=== PATIENT | male | born 1960 | race Hispanic/Latino ===

== ENCOUNTER 2017-07-03 20:07 | Inpatient (IN) | payer OTHER ==
[2017-07-03 20:18] VITALS: BMI 27.4
--- NOTE | 2017-07-03 20:40 | ED PDOC ---
Arrival/HPI - General Historian: Patient EM Caveat: Acuity of Condition - History of Present Illness Time/Duration: 24 hours Symptom Onset: Sudden Symptom Course: Improving Quality: Other (numbness/tingling) Severity Level: Moderate Activities at Onset: Eating Context: Home - General Chief Complaint: Upper Extremity Problem/Injury Time Seen by Provider: 07/03/17 20:30 - History of Present Illness Narrative History of Present Illness (Text): 07/03/17 20:32 57yo M PMH HTN and HLD who presents with L wrist/hand numbness and tingling that began earlier this morning around breakfast time. symptoms began suddenly and pt was not able to use his hands to grab objects; denies radiation of symptoms from/to shoulders. pt states that symptoms have improved but there remains some weakness in the hand. denies slurring of speech, facial droop, changes in vision/hearing, LOC, dizziness or any other focal deficits. Pt denies recent illness, sick contacts or any trauma. Pt states that he has not been taking his Lipitor for 2 years and has not seen his PMD during that time; pt was never started on anti-hypertensive meds. PMH: HTN and HLD PSH: L meniscus Meds: taking none Allergies: NKDA SHx: denies tobacco and substance abuse; social drinker. . 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 PMD: Dr Mcclendon ([facility]) Past Medical History - Provider Review Nursing Documentation Reviewed: Yes - Past History Past History: No Previous - Infectious Disease Hx of Infectious Diseases: None - Cardiac Hx Cardiac Disorders: Yes Hx Hyperlipemia: Yes Hx Hypertension: Yes - Pulmonary Hx Respiratory Disorders: No - Neurological Hx Neurological Disorder: No - HEENT Hx HEENT Disorder: No - Renal Hx Renal Disorder: No - Endocrine/Metabolic Hx Endocrine Disorders: No - Hematological/Oncological Hx Blood Disorders: No - Integumentary Hx Dermatological Disorder: No - Musculoskeletal/Rheumatological Hx Musculoskeletal Disorders: No - Gastrointestinal Hx Gastrointestinal Disorders: No - Genitourinary/Gynecological Hx Genitourinary Disorders: No - Psychiatric Hx Psychophysiologic Disorder: No Hx Substance Use: No - Past Surgical History Past Surgical History: Non-Contributing - Surgical History Other/Comment: L knee surgery - Anesthesia Hx Anesthesia: Yes Hx Anesthesia Reactions: No Hx Malignant Hyperthermia: No Family/Social History - Physician Review Nursing Documentation Reviewed: Yes Family/Social History: Hypertension Smoking Status: Never Smoked Hx Alcohol Use: Yes Frequency of alcohol use: Socially Hx Substance Use: No Allergies/Home Meds Allergies/Adverse Reactions: Allergies No Known Allergies Allergy (Verified 07/03/17 20:22) Home Medications: Home Meds Medication Instructions Recorded Confirmed No Known Home Med 07/04/17 07/04/17 Review of Systems - Physician Review All systems were reviewed & negative as marked: Yes - Review of Systems Constitutional: Normal. absent: Fevers, Night Sweats Eyes: absent: Vision Changes ENT: absent: Hearing Changes, Tinnitus Cardiovascular: absent: Chest Pain, Palpitations Gastrointestinal: absent: Abdominal Pain, Diarrhea, Nausea, Vomiting Genitourinary Male: Normal Musculoskeletal: absent: Back Pain, Neck Pain Neurological: Focal Weakness (L wrist numbness/tingling). absent: Headache, Dizziness, Speech Changes, Facial Droop Physical Exam Vital Signs Reviewed: Yes Appearance: Positive for: Well-Appearing Pain Distress: None Mental Status: Positive for: Alert and Oriented X 3 - Systems Exam Head: Present: Atraumatic, Normocephalic Pupils: Present: PERRL Extroacular Muscles: Present: EOMI Conjunctiva: Present: Normal Mouth: Present: Moist Mucous Membranes Pharnyx: Present: Normal Neck: Present: Normal Range of Motion. No: MIDLINE TENDERNESS, Paraspinal Tenderness, Lymphadenopathy Respiratory/Chest: Present: Clear to Auscultation, Good Air Exchange. No: Respiratory Distress, Accessory Muscle Use Cardiovascular: Present: Regular Rate and Rhythm, Normal S1, S2. No: Murmurs Abdomen: Present: Normal Bowel Sounds. No: Tenderness, Distention Back: Present: Normal Inspection. No: CVA Tenderness Upper Extremity: Present: NORMAL PULSES, Neurovascularly Intact. No: Tenderness , Swelling Lower Extremity: Present: Normal Inspection. No: Edema Neurological: Present: CN II-XII Intact, Speech Normal, Memory Normal. No: Motor Func Grossly Intact (L intrinsic muscle weakness ) Skin: Present: Warm, Dry, Normal Color. No: Rashes Psychiatric: Present: Alert, Oriented x 3 Vital Signs Temp Pulse Resp BP Pulse Ox 07/03/17 23:48 97.9 F 75 17 153/93 H 96 07/03/17 20:21 98.2 F 92 H 18 155/105 H 97 Medical Decision Making ED Course and Treatment: Patient seen and examined with resident. Came up with treatment and disposition plan with resident. ([place]) 07/03/17 20:48 Impression: 57yo M presenting with improving L wrist/hand weakness, numbness and tingling Differential Diagnosis included but are not limited to: CVA vs TIA vs peripheral neuropathy Plan: -- EKG -- Labs -- CT Head -- Reassess and disposition -- TPA not cosidered due to onset of symptoms being > 12 hours 07/03/17 21:13 EKG: Ordered, reviewed, and independently interpreted the EKG. Rate : 86 BPM Rhythm : NSR Interpretation : No ST-segment elevations or depressions, no T-wave inversions, normal intervals. Comparison : No previous EKG for comparison. 07/03/17 21:15 CT Head w/o contrast: IMPRESSION: Chronic changes. Acute infarcts/early ischemic changes may not be detectable by this modality; MRI is more sensitive in detecting acute ischemia. Dictated and Authenticated by: Allie Andersen MD 07/03/2017 11:19 PM Eastern Time ([place] & [place]) 07/04/17 00:50 Discussed with pt that he would be admitted for closer monitoring and neuro eval. 07/04/17 01:[address] Clay who accepts pt onto hospitalist service 07/04/17 01:04 CXR Impression: As read by me, no pneumothorax, no pneumonia, no cardiomegaly, no infiltrates (ARACELI VAZQUEZ) - Lab Interpretations Lab Results: 07/03/17 20:45 07/03/17 20:45 Lab Results 07/03/17 23:30: Urine Color Yellow, Urine Appearance Clear, Urine pH 6.0, Ur Specific [place] 1.015, Urine Protein Negative, Urine Glucose (UA) Negative, Urine Ketones Negative, Urine Blood Negative, Urine Nitrate Negative, Urine Bilirubin Negative, Urine Urobilinogen 0.2, Ur Leukocyte Esterase Negative 07/03/17 23:21: Blood Type Confirm B POSITIVE 07/03/17 20:45: Blood Type B POSITIVE, Antibody Screen Negative, BBK History Checked No verified bt 07/03/17 20:45: Sodium 141, Potassium 4.2, Chloride 103, Carbon Dioxide 25, Anion Gap 17, BUN 21, Creatinine 1.2, Est GFR ( Amer) > 60, Est GFR (Non- Af Amer) > 60, Random Glucose 133 H, Calcium 9.9, Total Bilirubin 0.7, AST 32, ALT 32, Alkaline Phosphatase 58, Troponin I < 0.01, Total Protein 8.0, Albumin 5.0 H, Globulin 3.0, Albumin/Globulin Ratio 1.7, Triglycerides 239 H, Cholesterol 271 H, LDL Cholesterol Direct 195 H, HDL Cholesterol 42 07/03/17 20:45: PT 10.9, INR 1.01, APTT 24.8 07/03/17 20:45: WBC 7.2, RBC 4.93, Hgb 15.0, Hct 42.5, MCV 86.2, MCH 30.4, MCHC 35.3, RDW 12.3, Plt Count 235, MPV 10.4, Gran % 63.1, Lymph % (Auto) 26.6, [place] % (Auto) 8.5 H, Eos % (Auto) 1.4 L, Baso % (Auto) 0.4, Gran # 4.53, Lymph # 1.9 , [place] # 0.6, Eos # 0.1, Baso # 0.03 - RAD Interpretation Radiology Orders: 07/03/17 20:31 CHEST PORTABLE [RAD] Stat 07/03/17 20:32 HEAD W/O CONTRAST [CT] Stat - Medication Orders Current Medication Orders: Discontinued Medications Aspirin (Aspirin) 325 mg PO STAT STA Stop: 07/03/17 23:47 Last Admin: 07/04/17 00:31 Dose: 325 mg Atorvastatin Calcium (Lipitor) 40 mg PO STAT STA Stop: 07/03/17 23:47 Last Admin: 07/04/17 00:31 Dose: 40 mg NIHSS Scale([place]) 2 Time Performed: 23:00 - How Severe is the Stoke Baseline Level of Consciousness: 0=Alert LOC to Questions: 0=Both comments correct LOC to commands: 0=Obeys both correctly Best Gaze: 0=Normal Visual: 0=No visual loss Facial: 0=Normal Motor Arm - Left: 0=No drift Motor Arm - Right: 0=No drift Motor Leg - Left: 0=No drift Motor Leg - Right: 0=No drift Limb Ataxia: 0=Absent Sensory: 0=Normal Best Language: 0=No aphasia Dysarthia: 0=Normal articulation Extinction & Inattention (Neglect): 0=Normal, no object Score: 0 Risk Level: No Stroke Risk Disposition/Present on Arrival - Present on Arrival Any Indicators Present on Arrival: No History of DVT/PE: No History of Uncontrolled Diabetes: No Urinary Catheter: No History of Decub. Ulcer: No History Surgical Site Infection Following: None - Disposition Have Diagnosis and Disposition been Completed?: Yes Disposition Time: 00:52 Patient Plan: Admission - Disposition Diagnosis: TIA (transient ischemic attack), Left arm weakness Disposition: HOSPITALIZED Patient Problems: Current Active Problems Problem Status Onset Left arm weakness Acute TIA (transient ischemic attack) Acute Condition: STABLE Referrals: Ivan Espinoza MD [Primary Care Provider] - Follow up with primary Forms: [employer] (Ugandan)
[2017-07-03 21:17] LABS: BASO # 0.03 K/mm3 (0.0-2.0); BASO % 0.4 % (0.0-3.0); EOS # 0.1 (0.0-0.7); EOS % 1.4 % (1.5-5.0); GRAN # 4.53 (1.4-6.5); GRAN % 63.1 % (50.0-68.0); HEMATOCRIT 42.5 % (42.0-52.0); LYMPH # 1.9 (1.2-3.4); LYMPH % 26.6 % (22.0-35.0); MEAN CELL VOLUME 86.2 fl (80.0-105.0); MEAN CORPUSCULAR HEMOGLOBIN 30.4 pg (25.0-35.0); MEAN CORPUSCULAR HGB CONC 35.3 g/dl (31.0-37.0); MEAN PLATELET VOLUME 10.4 fl (7.0-11.0); MONO # 0.6 (0.1-0.6); MONO % 8.5 % (1.0-6.0); RED CELL DISTRIBUTION WIDTH 12.3 % (11.5-14.5); WHITE BLOOD COUNT 7.2 10^3/ul (4.5-11.0)
[2017-07-03 21:22] LABS: INR 1.01 (0.93-1.08); PARTIAL THROMBOPLASTIN TIME 24.8 Seconds (23.7-30.8)
[2017-07-03 21:29] LABS: ALB/GLOB RATIO 1.7 (1.1-1.8); ALKALINE PHOSPHATASE 58 U/L (38-126); ALT/SGPT 32 U/L (7-56); AST/SGOT 32 U/L (17-59); BILIRUBIN,TOTAL 0.7 mg/dL (0.2-1.3); BLOOD UREA NITROGEN 21 mg/dL (7-21); CALCIUM 9.9 mg/dL (8.4-10.5); CARBON DIOXIDE 25 mmol/L (21-33); CHLORIDE 103 mmol/L (98-107); CHOLESTEROL 271 mg/dL (130-200); GFR AFRICAN-AMERICAN > 60; GLUCOSE,RANDOM 133 mg/dL (70-110); POTASSIUM 4.2 mmol/L (3.6-5.0); SODIUM 141 mmol/L (132-148)
[2017-07-03 21:47] LABS: TROPONIN I < 0.01 ng/mL
--- NOTE | 2017-07-03 23:19 | CT ---
EXAM: CT Head Without Intravenous Contrast CLINICAL HISTORY: 57 years old, male; Signs and symptoms; Numbness / parasthesia; Left; Additional info: TIA TECHNIQUE: Axial computed tomography images of the head/brain without intravenous contrast. All CT scans at this facility use one or more dose reduction techniques, viz.: automated exposure control; ma/kV adjustment per patient size (including targeted exams where dose is matched to indication; i.e. head); or iterative reconstruction technique. COMPARISON: No relevant prior studies available. FINDINGS: Brain: Atrophy. Bilateral scattered areas of white matter hypoattenuation most consistent with chronic ischemic small vessel changes. Vascular calcification. No hemorrhage. No edema. Ventricles: No hydrocephalus. Bones: Skull is intact. Sinuses: No acute sinusitis. Mastoid air cells: No mastoid effusion. IMPRESSION: Chronic changes as above. Acute infarcts/early ischemic changes may not be detectable by this modality; MRI is more sensitive in detecting acute ischemia.
[2017-07-03 23:50] LABS: URINE BILIRUBIN NEGATIVE (NEGATIVE); URINE BLOOD NEGATIVE (NEGATIVE); URINE GLUCOSE (UA) NEGATIVE (NEGATIVE); URINE KETONE NEGATIVE (NEGATIVE); URINE LEUKOCYTE ESTERASE NEGATIVE Leu/uL (NEGATIVE); URINE PROTEIN NEGATIVE mg/dL (<30 mg/dL); URINE UROBILINOGEN 0.2 E.U./dL (<1 E.U./dL)
[2017-07-04 00:05] LABS: URINE APPEARANCE CLEAR (CLEAR); URINE COLOR YELLOW (YELLOW)
--- NOTE | 2017-07-04 02:35 | CP.PCM.HP ---
History of Present Illness - History of Present Illness History of Present Illness: H/P For IM - TKS DO, PGY-1 CC: Hand Numbness HPI: 57 M w pertinent PMHx of HTN and HLD presents with 14 hour duration of left hand numbness and loss of function of left hand. Patient states that he woke up and during breakfast he was unable to button his shirt. He reports no other deficits including los in b/l UE and LE, no facial droop, and no ams. Pt denies similar episodes in the past. Pt denies loss of bowel/bladder. Pt denies trauma Pt denies f/ch/cp/sob/n/v/d/dysuria/frequency/urgency/hematuria/hematochezia/ hematemesis PMH: Medication non-compliance, HTN and HLD PSH: L meniscus Meds: taking none Allergies: NKDA SHx: +Marijuana in the past; denies current tobacco and substance abuse; past smoker, social drinker. . 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 PMD: Dr Mcclendon Present on Admission - Present on Admission Any Indicators Present on Admission: No Review of Systems - Hematologic/Lymphatic Additional comments: ROS: Constitutional: pt denies fever, chills, generalized weakness ENT: pt denies dysphagia, otalgia, hearing deficit, rhinorrhea Eyes: pt denies sudden loss of vision, diplopia, blurred vision MSK: pt denies muscle stiffness, joint pain, extremity cramping Cardio: pt denies sob, heart murmur, cp Pulm: pt denies cough, hemoptysis, wheeze GI: pt denies loss of appetite, abdominal pain, constipation, melena, n/v/d : pt denies burning on urination, urinary frequency, hematuria, urinary urgency Neuro: +SEE HPI Derm: pt denies skin changes, lesions, nail changes Endo: pt denies intolerance to heat/cold, diaphoresis, night sweats, polydipsia Psych: pt denies anxiety, depression, mood changes Past Patient History - Infectious Disease Hx of Infectious Diseases: None - Past Social History Smoking Status: Never Smoked - CARDIAC Hx Cardiac Disorders: Yes Hx Hypertension: Yes - PULMONARY Hx Respiratory Disorders: No - NEUROLOGICAL Hx Neurological Disorder: No - HEENT Hx HEENT Problems: No - RENAL Hx Chronic Kidney Disease: No - ENDOCRINE/METABOLIC Hx Endocrine Disorders: No - HEMATOLOGICAL/ONCOLOGICAL Hx Blood Disorders: No - INTEGUMENTARY Hx Dermatological Problems: No - MUSCULOSKELETAL/RHEUMATOLOGICAL Hx Musculoskeletal Disorders: No - GASTROINTESTINAL Hx Gastrointestinal Disorders: No - GENITOURINARY/GYNECOLOGICAL Hx Genitourinary Disorders: No - PSYCHIATRIC Hx Psychophysiologic Disorder: No Hx Substance Use: No - SURGICAL HISTORY Other/Comment: L knee surgery - ANESTHESIA Hx Anesthesia: Yes Hx Anesthesia Reactions: No Hx Malignant Hyperthermia: No Meds Allergies/Adverse Reactions: Allergies Allergy/AdvReac Type Severity Reaction Status Date / Time No Known Allergies Allergy Verified 07/03/17 20:22 Physical Exam - Additional Findings Additional findings: Phys Exam: VS as below Constitutional: a&o x 4, nad Head and Neck: neck supple, no jvd, trachea midline, carotid midline, no cervical/head mass Eyes: ann, nonicteric sclera, eom intact ENT: auditory acuity grossly intact, throat not congested, no nasal deformity Cardio: rrr, no m/r/g, no carotid bruit, nml s1, s2 Pulm: no accessory muscle use, equal nml breath sounds bilaterally, ctab Abd: s/nt/nd, nbs x 4 q, no palpable masses Derm: no rashes, no ulcers, no lesions Extr: +See Neuro Exam; no edema, no cyanosis, no calf tenderness, no lesions, no varicosities Neuro: +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; cn II-XII grossly intact, rue and b/l le 5/ 5 muscle strength, no los ue, le bilaterally and core Results - Vital Signs Recent Vital Signs: Last Vital Signs Temp 97.9 F 07/03/17 23:48 Pulse 75 07/03/17 23:48 Resp 17 07/03/17 23:48 BP 153/93 H 07/03/17 23:48 Pulse Ox 96 07/03/17 23:48 - Labs Result Diagrams: 07/03/17 20:45 07/03/17 20:45 Labs: Laboratory Results - last 24 hr 07/03/17 07/03/17 07/03/17 20:45 20:45 20:45 WBC 7.2 RBC 4.93 Hgb 15.0 Hct 42.5 MCV 86.2 MCH 30.4 MCHC 35.3 RDW 12.3 Plt Count 235 MPV 10.4 Gran % 63.1 Lymph % (Auto) 26.6 [place] % (Auto) 8.5 H Eos % (Auto) 1.4 L Baso % (Auto) 0.4 Gran # 4.53 Lymph # 1.9 [place] # 0.6 Eos # 0.1 Baso # 0.03 PT 10.9 INR 1.01 APTT 24.8 Sodium 141 Potassium 4.2 Chloride 103 Carbon Dioxide 25 Anion Gap 17 BUN 21 Creatinine 1.2 Est GFR ( Amer) > 60 Est GFR (Non-Af Amer) > 60 Random Glucose 133 H Calcium 9.9 Total Bilirubin 0.7 AST 32 ALT 32 Alkaline Phosphatase 58 Troponin I < 0.01 Total Protein 8.0 Albumin 5.0 H Globulin 3.0 Albumin/Globulin Ratio 1.7 Triglycerides 239 H Cholesterol 271 H LDL Cholesterol Direct 195 H HDL Cholesterol 42 Urine Color Urine Appearance Urine pH Ur Specific [place] Urine Protein Urine Glucose (UA) Urine Ketones Urine Blood Urine Nitrate Urine Bilirubin Urine Urobilinogen Ur Leukocyte Esterase Blood Type Blood Type Confirm Antibody Screen BBK History Checked 07/03/17 07/03/17 07/03/17 20:45 23:21 23:30 WBC RBC Hgb Hct MCV MCH MCHC RDW Plt Count MPV Gran % Lymph % (Auto) [place] % (Auto) Eos % (Auto) Baso % (Auto) Gran # Lymph # [place] # Eos # Baso # PT INR APTT Sodium Potassium Chloride Carbon Dioxide Anion Gap BUN Creatinine Est GFR ( Amer) Est GFR (Non-Af Amer) Random Glucose Calcium Total Bilirubin AST ALT Alkaline Phosphatase Troponin I Total Protein Albumin Globulin Albumin/Globulin Ratio Triglycerides Cholesterol LDL Cholesterol Direct HDL Cholesterol Urine Color Yellow Urine Appearance Clear Urine pH 6.0 Ur Specific [place] 1.015 Urine Protein Negative Urine Glucose (UA) Negative Urine Ketones Negative Urine Blood Negative Urine Nitrate Negative Urine Bilirubin Negative Urine Urobilinogen 0.2 Ur Leukocyte Esterase Negative Blood Type B POSITIVE Blood Type Confirm B POSITIVE Antibody Screen Negative BBK History Checked No verified bt Assessment & Plan - Assessment and Plan (Free Text) Assessment: A/P 57 M Pertinent PMHx of HTN and HLD presenting with sudden onset of L hand weakness, improving throughout the day. No other neurological deficits with normal head CT Hand weakness 2/2 TIA VS Nerve impingement VS Psych - Lipid Panel, TSH, A1C - AM labs: CMP, CBC, Mg, Phos - MRI Wrist, XR Hand - pending - Consider neuro c/s - Consider psych c/s Hx/O HTN - No meds Hx/O HLD - Started on statin - keep daily in case this is a TIA, though initial CT is negative PPX - Heparin/Protonix TKS DO PGY-1, d/w Dr. Clay
[2017-07-04] MEDS: Pantoprazole 40 mg EC Tab PO SCH (05:25)
[2017-07-04 08:09] LABS: BASO # 0.03 K/mm3 (0.0-2.0); BASO % 0.5 % (0.0-3.0); EOS # 0.1 (0.0-0.7); EOS % 1.7 % (1.5-5.0); GRAN # 4.14 (1.4-6.5); GRAN % 65.8 % (50.0-68.0); HEMATOCRIT 42.8 % (42.0-52.0); LYMPH # 1.6 (1.2-3.4); LYMPH % 25.3 % (22.0-35.0); MEAN CELL VOLUME 86.1 fl (80.0-105.0); MEAN CORPUSCULAR HEMOGLOBIN 30.2 pg (25.0-35.0); MEAN PLATELET VOLUME 10.4 fl (7.0-11.0); MONO # 0.4 (0.1-0.6); MONO % 6.7 % (1.0-6.0); RED CELL DISTRIBUTION WIDTH 12.5 % (11.5-14.5); WHITE BLOOD COUNT 6.3 10^3/ul (4.5-11.0)
[2017-07-04 08:23] LABS: CHOLESTEROL 276 mg/dL (130-200)
--- NOTE | 2017-07-04 08:23 | RAD ---
HISTORY: TIA COMPARISON: No prior. FINDINGS: LUNGS: The lungs are well inflated and clear. PLEURA: No significant pleural effusion identified, no pneumothorax apparent. CARDIOVASCULAR: Normal. OSSEOUS STRUCTURES: No significant abnormalities. VISUALIZED UPPER ABDOMEN: Normal. OTHER FINDINGS: None. IMPRESSION: No active pulmonary disease.
[2017-07-04 08:29] LABS: ALB/GLOB RATIO 1.7 (1.1-1.8); ALKALINE PHOSPHATASE 67 U/L (38-126); ALT/SGPT 49 U/L (7-56); AST/SGOT 28 U/L (17-59); BILIRUBIN,TOTAL 0.9 mg/dL (0.2-1.3); BLOOD UREA NITROGEN 18 mg/dL (7-21); CALCIUM 9.5 mg/dL (8.4-10.5); CARBON DIOXIDE 25 mmol/L (21-33); CHLORIDE 105 mmol/L (98-107); GFR AFRICAN-AMERICAN > 60; GLUCOSE,RANDOM 104 mg/dL (70-110); MAGNESIUM 2.3 mg/dL (1.7-2.2); PHOSPHOROUS 3.5 mg/dL (2.5-4.5); POTASSIUM 4.3 mmol/L (3.6-5.0); SODIUM 142 mmol/L (132-148); TOTAL PROTEIN 7.8 g/dL (5.8-8.3)
--- NOTE | 2017-07-04 09:28 | CARD ---
APPROVED REPORT EKG Measurement Heart [id number] <Conclusion> Normal sinus rhythm Normal ECG
--- NOTE | 2017-07-04 11:04 | MRI ---
PROCEDURE: MRI BRAIN WITHOUT CONTRAST HISTORY: Left hand weakness COMPARISON: Noncontrast head CT from 07/03/2017 TECHNIQUE: Multiplanar, multisequence MR images of the brain were obtained without intravenous contrast enhancement. FINDINGS: HEMORRHAGE: None DWI: There are focal areas of restricted diffusion in the right posterior frontal cortex (precentral gyrus) with corresponding increased T2/FLAIR signal. BRAIN PARENCHYMA: There are mild chronic microangiopathic changes. There is no mass, mass effect or abnormal extra-axial fluid collection. The midline sagittal structures are normal. VENTRICLES: There is mild global parenchymal volume loss and proportionate enlargement of the ventricles and cortical sulci, advanced for the patient's age. CRANIUM: There is normal bone marrow signal pattern. ORBITS: Grossly unremarkable. PARANASAL SINUSES/MASTOIDS: There is mild mucosal thickening in the paranasal sinuses. The mastoid air cells are predominantly clear. VASCULAR SYSTEM: There are normal signal voids in the larger intracranial arteries. OTHER FINDINGS: None. 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 Mild chronic microangiopathic changes. Mild global parenchymal volume loss, advanced for the patient's age. Important findings were discussed with nurse Gaby patten on 07/04/2017 at 10:55 a.m.
--- NOTE | 2017-07-04 11:06 | RAD ---
PROCEDURE: Left Hand Radiographs. HISTORY: Hand weakness COMPARISON: None. FINDINGS: BONES: There is no acute displaced fracture or bone destruction. Bone alignment is normal. There is mild periarticular bone demineralization. JOINTS: The joint spaces are preserved. SOFT TISSUES: Normal. OTHER FINDINGS: None. IMPRESSION: No acute fracture, dislocation or bone destruction.
[2017-07-04] MEDS ORDERED: Iodixanol 320 MG/ML 100 ML BOTTLE IV ONE (15:26)
--- NOTE | 2017-07-04 16:02 | CT ---
PROCEDURE: CTA HEAD AND NECK WITH CONTRAST HISTORY: New CVA COMPARISON: Noncontrast head CT from 07/03/2017 and MRI brain from 07/04/2017. TECHNIQUE: Initial noncontrast head CT was performed. Subsequently, CT angiogram of the head and neck were performed after the intravenous administration of 80 mL of Omnipaque 350. Contiguous 1.5mm thick images were obtained in the axial plane of the neck. 2-D coronal and sagittal MPR images were obtained. Imaging postprocessing was performed with 3-D images also obtained. A delayed contrast head CT was also obtained. This CT exam was performed using one or more of the following dose reduction techniques: Automated exposure control, adjustment of the mA and/or kV according to patient size, and/or use of iterative reconstruction technique. Radiation dose: Total exam DLP = 673.50 mGy-cm. FINDINGS: HEAD: Right: The intracranial internal carotid artery, and anterior and middle cerebral arteries are widely patent. The right A1 segment is hypoplastic, an anatomic variant. Left: The intracranial internal carotid artery, and anterior and middle cerebral arteries are widely patent. Posterior circulation: The visualized intracranial vertebral arteries, basilar artery and posterior cerebral arteries are widely patent. Ther is no endoluminal filling defect to suggest thrombus. There is no intracranial saccular aneurysm. There is no abnormal enhancement on the postcontrast CT. NECK: There is a three vessel aortic arch. There is no stenosis at the origins of the great vessels at the level of the aortic arch. There are calcified atherosclerotic plaques in bilateral proximal internal carotid arteries. Right Carotid: On the right, the common carotid, internal carotid and external carotid arteries are widely patent. There is no hemodynamically significant stenosis in the internal carotid arteries. Left Carotid: On the left, the common carotid, internal carotid and external carotid arteries are widely patent.There is no hemodynamically significant stenosis in the internal carotid arteries. The vertebral arteries are widely patent. The vertebral artery is hypoplastic, an anatomic variant. The visualized soft tissues of the neck are normal. The visualized brain and cervical spine are within normal limits. The lung apices are clear. IMPRESSION: No evidence of occlusion, thrombus or definite significant stenosis. No hemodynamically significant stenosis in the internal carotid arteries.
[2017-07-04] MEDS ORDERED: Magnesium Sulfate 2 GM in Sodium Chloride 0.9% 100 ML IVPB ONE (16:35)
[2017-07-04] MEDS ORDERED: Labetalol 5 mg/ml Inj 20ML IV ONE (16:38)
--- NOTE | 2017-07-04 16:45 | CP.PCM.CON ---
History of Present Illness - History of Present Illness History of Present Illness: Mr. Parrish is a 57-year-old man with a past medical history of HTN and HLD, who presented to the ED with complaints of left hand weakness that had started 14 hours earlier. An MRI of the brain was done and showed a right parietal lobe, embolic appearing ischemic stroke. The patient's BP was elevated , but he states that his hand movement is improving. He denied headache, nausea , chest pain, SOB, other weakness or any significant sensory changes. He did not complain of any difficulty with ambulation or gait instability. Review of Systems - Review of Systems All systems: reviewed and no additional remarkable complaints except Past Patient History - Infectious Disease Hx of Infectious Diseases: None - Past Social History Smoking Status: Never Smoked - CARDIAC Hx Cardiac Disorders: Yes Hx Hypertension: Yes - PULMONARY Hx Respiratory Disorders: No - NEUROLOGICAL Hx Neurological Disorder: No - HEENT Hx HEENT Problems: No - RENAL Hx Chronic Kidney Disease: No - ENDOCRINE/METABOLIC Hx Endocrine Disorders: No - HEMATOLOGICAL/ONCOLOGICAL Hx Blood Disorders: No - INTEGUMENTARY Hx Dermatological Problems: No - MUSCULOSKELETAL/RHEUMATOLOGICAL Hx Musculoskeletal Disorders: No - GASTROINTESTINAL Hx Gastrointestinal Disorders: No - GENITOURINARY/GYNECOLOGICAL Hx Genitourinary Disorders: No - PSYCHIATRIC Hx Psychophysiologic Disorder: No Hx Substance Use: No - SURGICAL HISTORY Other/Comment: L knee surgery - ANESTHESIA Hx Anesthesia: Yes Hx Anesthesia Reactions: No Hx Malignant Hyperthermia: No Meds Allergies/Adverse Reactions: Allergies Allergy/AdvReac Type Severity Reaction Status Date / Time No Known Allergies Allergy Verified 07/03/17 20:22 - Medications Medications: Current Medications Aspirin (Aspirin Chewable) 81 mg PO DAILY [facility] Last Admin: 07/04/17 09:40 Dose: 81 mg Atorvastatin Calcium (Lipitor) 40 mg PO DIN [facility] Clopidogrel Bisulfate (Plavix) 75 mg PO DAILY [facility] Heparin Sodium (Porcine) (Heparin) 5,000 units SC Q8 NURA PRN Reason: Protocol Last Admin: 07/04/17 13:15 Dose: 5,000 units Hydralazine HCl (Apresoline) 10 mg IVP Q6 PRN PRN Reason: Diastolic blood pressure Pantoprazole Sodium (Protonix Ec Tab) 40 mg PO 0600 [facility] Last Admin: 07/04/17 05:25 Dose: 40 mg Physical Exam - Constitutional Appears: Well - Head Exam Head Exam: ATRAUMATIC, NORMAL INSPECTION, NORMOCEPHALIC - Eye Exam Eye Exam: EOMI, Normal appearance, PERRL - ENT Exam ENT Exam: Mucous Membranes Moist, Normal Exam - Neck Exam Neck exam: Positive for: Normal Inspection - Respiratory Exam Respiratory Exam: Clear to Auscultation Bilateral, NORMAL BREATHING PATTERN - Cardiovascular Exam Cardiovascular Exam: REGULAR RHYTHM, +S1, +S2 - GI/Abdominal Exam GI & Abdominal Exam: Normal Bowel Sounds, Soft. absent: Tenderness - Rectal Exam Rectal Exam: Deferred - Extremities Exam Extremities exam: Positive for: normal inspection - Back Exam Back exam: NORMAL INSPECTION - Neurological Exam Neurological exam: Alert, CN II-XII Intact, Normal Gait, Oriented x3, Reflexes Normal Additional comments: Hand section chief is weaker on the left and he has a pronator drift. Otherwise strength is full and symmetrical throughout. NIHSS=1 - Psychiatric Exam Psychiatric exam: Normal Affect, Normal Mood - Skin Skin Exam: Dry, Intact, Normal Color, Warm Results - Vital Signs Recent Vital Signs: Last Vital Signs Temp 98 F 07/04/17 12:00 Pulse 90 07/04/17 14:00 Resp 18 07/04/17 13:30 BP 152/92 H 07/04/17 13:30 Pulse Ox 97 07/04/17 06:00 - Labs Result Diagrams: 07/04/17 08:00 07/04/17 08:00 Labs: Laboratory Results - last 24 hr 07/04/17 07/04/17 07/04/17 07:22 08:00 08:00 WBC 6.3 RBC 4.97 Hgb 15.0 Hct 42.8 MCV 86.1 MCH 30.2 MCHC 35.0 RDW 12.5 Plt Count 218 MPV 10.4 Gran % 65.8 Lymph % (Auto) 25.3 [place] % (Auto) 6.7 H Eos % (Auto) 1.7 Baso % (Auto) 0.5 Gran # 4.14 Lymph # 1.6 [place] # 0.4 Eos # 0.1 Baso # 0.03 Sodium 142 Potassium 4.3 Chloride 105 Carbon Dioxide 25 Anion Gap 16 BUN 18 Creatinine 0.9 Est GFR ( Amer) > 60 Est GFR (Non-Af Amer) > 60 POC Glucose (mg/dL) 98 Random Glucose 104 Hemoglobin A1c Calcium 9.5 Phosphorus 3.5 Magnesium 2.3 H Total Bilirubin 0.9 AST 28 ALT 49 Alkaline Phosphatase 67 Total Protein 7.8 Albumin 4.9 H Globulin 2.9 Albumin/Globulin Ratio 1.7 Triglycerides Cholesterol LDL Cholesterol Direct HDL Cholesterol Vitamin B12 440 TSH 3rd Generation 07/04/17 07/04/17 07/04/17 08:00 08:00 08:00 WBC RBC Hgb Hct MCV MCH MCHC RDW Plt Count MPV Gran % Lymph % (Auto) [place] % (Auto) Eos % (Auto) Baso % (Auto) Gran # Lymph # [place] # Eos # Baso # Sodium Potassium Chloride Carbon Dioxide Anion Gap BUN Creatinine Est GFR ( Amer) Est GFR (Non-Af Amer) POC Glucose (mg/dL) Random Glucose Hemoglobin A1c 5.8 Calcium Phosphorus Magnesium Total Bilirubin AST ALT Alkaline Phosphatase Total Protein Albumin Globulin Albumin/Globulin Ratio Triglycerides 141 Cholesterol 276 H LDL Cholesterol Direct 202 H HDL Cholesterol 43 Vitamin B12 TSH 3rd Generation 1.23 Assessment & Plan (1) Acute ischemic right MCA stroke Assessment and Plan: The appearance of the stroke is cardio-embolic. CTA of the head/neck did not show a large vessel occlusion or evidence of vessel to vessel embolism. I recommend the followin. Telemetry 2. Load with Plavix 300 mg and Aspirin 81 mg, and continue Plavix 75 mg and Aspirin 81 mg daily for 21 days per the CHANCE trial 3. PT/OT eval and treat 4. Fluids with NS at 100 mL/hr 5. Permissive HTN (do not treat BP unless higher than 220/110 mm Hg for the next 24-36 hours) 6. Echocardiogram with bubble study, if normal, consider UMER 7. Check lipid panel, HbA1c, TSH, B12, folate, homocysteine, Factor V Leiden, Prothrombin Gene mutation, [id number] mutation (hypercoagulable work-up) 8. Start Lipitor 40 mg daily 9. DVT Px 10. Case management consult Thank you. Status: Acute Priority: High
[2017-07-04] MEDS ORDERED: Labetalol 5 mg/ml Inj 20ML IV PRN (16:57)
[2017-07-04] MEDS ORDERED: Labetalol 5 mg/ml Inj 20ML IVP PRN (19:00)
--- NOTE | 2017-07-05 03:26 | CON ---
CONSULT SERVICE: Cardiology. DATE: 07/04/2017 REASON FOR CONSULTATION: Followup CVA. BRIEF CLINICAL HISTORY: This is a 57-year-old male with past medical history of hypertension and hyperlipidemia. He stopped taking medication for cholesterol more than one year, works as a real estate and states that yesterday after lunch tingling sensation in the left arm and then later on he feels the numbness and later on subsequently the patient felt weakness of finger and could not squeeze his finger and flex, so the patient thought it will get better after he will do some manipulation exercise, felt better, but later on it did not get better, called the sister who is a nurse here and came to the emergency room. When the patient came yesterday to the emergency between 8 and 9 p.m., was absolutely unable to flex the finger,but the numbness went away. Later on today, power increased significantly from yesterday, but still a little weaker than right arm, right hand and right finger. PAST MEDICAL HISTORY: Significant for hypertension, hyperlipidemia, currently not on medications. He used to take Lipitor, but he stopped more than one year ago. PAST SURGICAL HISTORY: Significant for left meniscus tear. ALLERGIES: NO KNOWN DRUG ALLERGIES. SOCIAL HISTORY: Quit smoking more than 15 years ago. No history of alcohol abuse except used marijuana in the past. CURRENT MEDICATIONS: None. REVIEW OF SYSTEMS: As per HPI. PHYSICAL EXAMINATION: As follows: VITAL SIGNS: Temperature is afebrile, heart rate is 90, and blood pressure is 152/92. HEENT: PERRLA intact. NECK: Supple. No carotid bruit. No thyromegaly. CHEST: Clear to auscultation. HEART: S1 and S2 regular. ABDOMEN: Soft. EXTREMITIES: Clubbing and cyanosis negative. LABORATORY DATA: Blood workup as follows, WBC 6.3, hemoglobin 15, hematocrit 42.8, and platelet count 218. Chemistry shows sodium of 142, potassium of 4.3, chloride 105, carbon dioxide of 25, anion gap of 15, BUN of 18, and creatinine of 0.8. Triglyceride 141, cholesterol 276, LDL 202, HDL 43 and TSH 1.23. Hemoglobin A1c 5.2. EKG shows normal sinus and no acute ST-T changes noted. IMPRESSION: Acute cerebrovascular accident, hypertension, and hyperlipidemia. RECOMMENDATION: We will get echo to assess LV function, rule out PFO, bubble study and control the blood pressure. Discussed with neurologist, does not want to lower the blood pressure less than 220. He states if the blood pressure goes above 220, then try to lower it because of extension of the infarct and tell him to continue telemetry monitoring to rule out any arrhythmia, rule out . We will follow with you. Thank you Dr. Sy for providing me the opportunity in taking care of the patient, Francois Flaherty. Abran Arevalo MD
[2017-07-05] MEDS: Pantoprazole 40 mg EC Tab PO SCH (05:59)
[2017-07-05 06:07] VITALS: O2SAT 97
--- NOTE | 2017-07-05 07:21 | CARD ---
APPROVED REPORT EXAM: Two-dimensional and M-mode echocardiogram with Doppler and color Doppler. Other Information Quality : AverageRhythm : INDICATION CVA 2D DIMENSIONS Left Atrium (2D)3.7 (1.6-4.0cm)IVSd1.0 (0.7-1.1cm) LVDd4.5 (3.9-5.9cm)PWd1.1 (0.7-1.1cm) LVDs3.3 (2.5-4.0cm)FS (%) 26.7 % LVEF (%)52.0 (>50%) M-Mode DIMENSIONS Aortic Root3.50 (2.2-3.7cm)Aortic Cusp Exc.1.90 (1.5-2.0cm) Aortic Valve AoV Peak Xoqrhvwa192.0cm/sLVOT Peak Lkukizys419.0cm/sLVOT VTI25.40cm Mitral Valve MV E Cdhwzsnq51.1cm/sMV A Hmjftzmq36.5cm/sE/A ratio0.7 TDI Lateral E' Peak V13.30cm/sMedial E' Peak V6.82cm/sE/Lateral E'4.6 E/Medial E'9.0 Pulmonary Valve PV Peak Naravaap29.4cm/sPV Peak Grad.3mmHg Tricuspid Valve TR Peak Bdvmnwsx924eo/sRAP MUDCUFPM13wpBnIV Peak Gr.24mmHg [id number] LEFT VENTRICLE The left ventricle is normal size. There is normal left ventricular wall thickness. The left ventricular function is normal. The left ventricular ejection fraction is within the normal range. There is normal LV segmental wall motion. RIGHT VENTRICLE The right ventricle is normal size. ATRIA The left atrium size is normal. The right atrium size is normal. The interatrial septum is intact with no evidence for an atrial septal defect. AORTIC VALVE The aortic valve is normal in structure. MITRAL VALVE The mitral valve is normal in structure. Mitral regurgitation is trace. TRICUSPID VALVE The tricuspid valve is normal in structure. PULMONIC VALVE The pulmonic valve is not well visualized. GREAT VESSELS The aortic root is normal in size. PERICARDIAL EFFUSION There is no pericardial effusion. <Conclusion> The left ventricle is normal size. There is normal left ventricular wall thickness. The left ventricular function is normal. Bubble study: No shunt detected.
[2017-07-05 08:17] LABS: BASO # 0.03 K/mm3 (0.0-2.0); BASO % 0.5 % (0.0-3.0); EOS # 0.1 (0.0-0.7); EOS % 1.3 % (1.5-5.0); GRAN # 4.21 (1.4-6.5); GRAN % 65.7 % (50.0-68.0); HEMATOCRIT 44.8 % (42.0-52.0); LYMPH # 1.7 (1.2-3.4); LYMPH % 25.9 % (22.0-35.0); MEAN CELL VOLUME 87.2 fl (80.0-105.0); MEAN CORPUSCULAR HEMOGLOBIN 30.4 pg (25.0-35.0); MEAN CORPUSCULAR HGB CONC 34.8 g/dl (31.0-37.0); MEAN PLATELET VOLUME 10.1 fl (7.0-11.0); MONO # 0.4 (0.1-0.6); MONO % 6.6 % (1.0-6.0); RED CELL DISTRIBUTION WIDTH 12.4 % (11.5-14.5); WHITE BLOOD COUNT 6.4 10^3/ul (4.5-11.0)
--- NOTE | 2017-07-05 08:27 | CP.PCM.PN ---
Objective - Vital Signs/Intake and Output Vital Signs (last 24 hours): Temp Pulse Resp BP Pulse Ox 97.7 F 66 20 142/83 97 07/05/17 06:00 07/05/17 06:00 07/05/17 06:00 07/05/17 06:00 07/05/17 06:00 Intake and Output: 07/05/17 07/05/17 06:59 18:59 Intake Total 240 Balance 240 - Medications Medications: Current Medications Aspirin (Aspirin Chewable) 81 mg PO DAILY [facility] Last Admin: 07/04/17 09:40 Dose: 81 mg Atorvastatin Calcium (Lipitor) 40 mg PO DIN [facility] Last Admin: 07/04/17 17:03 Dose: Not Given Atorvastatin Calcium (Lipitor) 20 mg PO ONCE ONE Stop: 07/05/17 17:16 Clopidogrel Bisulfate (Plavix) 75 mg PO DAILY [facility] Heparin Sodium (Porcine) (Heparin) 5,000 units SC Q8 [facility] PRN Reason: Protocol Last Admin: 07/05/17 05:58 Dose: 5,000 units Labetalol HCl (Trandate) 5 mg IV Q4H PRN PRN Reason: prn: specific hypertension Pantoprazole Sodium (Protonix Ec Tab) 40 mg PO 0600 [facility] Last Admin: 07/05/17 05:59 Dose: 40 mg - Labs Labs: 07/05/17 07:30 PT 10.9 Seconds (9.9-11.8) 07/03/17 20:45 INR 1.01 (0.93-1.08) 07/03/17 20:45 APTT 24.8 Seconds (23.7-30.8) 07/03/17 20:45
[2017-07-05 09:42] LABS: ALB/GLOB RATIO 1.8 (1.1-1.8); ALKALINE PHOSPHATASE 76 U/L (38-126); ALT/SGPT 48 U/L (7-56); AST/SGOT 30 U/L (17-59); BILIRUBIN,TOTAL 1.1 mg/dL (0.2-1.3); BLOOD UREA NITROGEN 18 mg/dL (7-21); CALCIUM 9.5 mg/dL (8.4-10.5); CARBON DIOXIDE 25 mmol/L (21-33); CHLORIDE 104 mmol/L (98-107); GFR AFRICAN-AMERICAN > 60; GLUCOSE,RANDOM 95 mg/dL (70-110); MAGNESIUM 2.3 mg/dL (1.7-2.2); PHOSPHOROUS 3.7 mg/dL (2.5-4.5); POTASSIUM 4.3 mmol/L (3.6-5.0); SODIUM 142 mmol/L (132-148); TOTAL PROTEIN 7.7 g/dL (5.8-8.3)
--- NOTE | 2017-07-05 14:58 | CP.PCM.PN ---
Subjective - Date & Time of Evaluation Date of Evaluation: 07/05/17 Time of Evaluation: 14:54 - Subjective Subjective: Mr. Parrish was seen and examined today at bedside after he completed evaluation by physical therapy and was cleared. 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 There were no acute events overnight. I discussed the results of the CTA and echocardiogram. So far, all the results have been normal, except for the MRI of the brain. The remaining hypercoagulable work-up is pending. Objective - Vital Signs/Intake and Output Vital Signs (last 24 hours): Temp Pulse Resp BP Pulse Ox 98.3 F 70 18 151/97 H 97 07/05/17 11:59 07/05/17 11:59 07/05/17 11:59 07/05/17 11:59 07/05/17 06:00 Intake and Output: 07/05/17 07/05/17 06:59 18:59 Intake Total 240 Balance 240 - Medications Medications: Current Medications Aspirin (Aspirin Chewable) 81 mg PO DAILY [facility] Last Admin: 07/05/17 09:24 Dose: 81 mg Atorvastatin Calcium (Lipitor) 40 mg PO DIN [facility] Last Admin: 07/04/17 17:03 Dose: Not Given Atorvastatin Calcium (Lipitor) 20 mg PO ONCE ONE Stop: 07/05/17 17:16 Clopidogrel Bisulfate (Plavix) 75 mg PO DAILY [facility] Last Admin: 07/05/17 09:24 Dose: 75 mg Heparin Sodium (Porcine) (Heparin) 5,000 units SC Q8 NURA PRN Reason: Protocol Last Admin: 07/05/17 13:25 Dose: 5,000 units Labetalol HCl (Trandate) 5 mg IV Q4H PRN PRN Reason: prn: specific hypertension Pantoprazole Sodium (Protonix Ec Tab) 40 mg PO 0600 [facility] Last Admin: 07/05/17 05:59 Dose: 40 mg - Labs Labs: 07/05/17 07:30 07/05/17 07:30 PT 10.9 Seconds (9.9-11.8) 07/03/17 20:45 INR 1.01 (0.93-1.08) 07/03/17 20:45 APTT 24.8 Seconds (23.7-30.8) 09/28/17 20:45 - Neurological Exam Additional comments: Neurologically unchanged compared with yesterday's examination. Assessment and Plan (1) Acute ischemic right MCA stroke Assessment & Plan: The underlying cause is cryptogenic, but most likely paroxysmal atrial fibrillation. No abnormal heart rhythm noted on telemetry. He will need to be set up with a Holter monitor to determine if there is an aberrant rhythm. Continue aspirin 81 mg daily and Plavix 75 mg daily for 21 days, then stop Plavix and continue aspirin 81 mg daily indefinitely. Continue Lipitor 40 mg daily. Follow up with me in the vascular neurology clinic. Status: Acute
--- NOTE | 2017-07-05 17:34 | CP.PCM.DIS ---
Provider - Provider Date of Admission: 07/04/17 16:32 Attending physician: Mike Sy MD Primary care physician: Ivan Espinoza MD Consults: Neurology: Dr. Tyler Cardiology: Dr. Arevalo Time Spent in preparation of Discharge (in minutes): 45 Hospital Course - Lab Results Lab Results: Most Recent Lab Values WBC 6.4 10^3/ul (4.5-11.0) 07/05/17 07:30 RBC 5.14 10^6/uL (3.5-6.1) 07/05/17 07:30 Hgb 15.6 g/dL (14.0-18.0) 07/05/17 07:30 Hct 44.8 % (42.0-52.0) 07/05/17 07:30 MCV 87.2 fl (80.0-105.0) 07/05/17 07:30 MCH 30.4 pg (25.0-35.0) 07/05/17 07:30 MCHC 34.8 g/dl (31.0-37.0) 07/05/17 07:30 RDW 12.4 % (11.5-14.5) 07/05/17 07:30 Plt Count 205 10^3/uL (120.0-450.0) 07/05/17 07:30 MPV 10.1 fl (7.0-11.0) 07/05/17 07:30 Gran % 65.7 % (50.0-68.0) 07/05/17 07:30 Lymph % (Auto) 25.9 % (22.0-35.0) 07/05/17 07:30 White % (Auto) 6.6 % (1.0-6.0) H 07/05/17 07:30 Eos % (Auto) 1.3 % (1.5-5.0) L 07/05/17 07:30 Baso % (Auto) 0.5 % (0.0-3.0) 07/05/17 07:30 Gran # 4.21 (1.4-6.5) 07/05/17 07:30 Lymph # 1.7 (1.2-3.4) 07/05/17 07:30 White # 0.4 (0.1-0.6) 07/05/17 07:30 Eos # 0.1 (0.0-0.7) 07/05/17 07:30 Baso # 0.03 K/mm3 (0.0-2.0) 07/05/17 07:30 PT 10.9 Seconds (9.9-11.8) 07/03/17 20:45 INR 1.01 (0.93-1.08) 07/03/17 20:45 APTT 24.8 Seconds (23.7-30.8) 07/03/17 20:45 Sodium 142 mmol/L (132-148) 07/05/17 07:30 Potassium 4.3 mmol/L (3.6-5.0) 07/05/17 07:30 Chloride 104 mmol/L (98-107) 07/05/17 07:30 Carbon Dioxide 25 mmol/L (21-33) 07/05/17 07:30 Anion Gap 17 (10-20) 07/05/17 07:30 BUN 18 mg/dL (7-21) 07/05/17 07:30 Creatinine 1.0 mg/dL (0.5-1.4) 07/05/17 07:30 Est GFR ( Amer) > 60 07/05/17 07:30 Est GFR (Non-Af Amer) > 60 07/05/17 07:30 POC Glucose (mg/dL) 98 mg/dL (65-110) 07/04/17 07:22 Random Glucose 95 mg/dL (70-110) 07/05/17 07:30 Hemoglobin A1c 5.8 % (4.2-6.5) 07/04/17 08:00 Calcium 9.5 mg/dL (8.4-10.5) 07/05/17 07:30 Phosphorus 3.7 mg/dL (2.5-4.5) 07/05/17 07:30 Magnesium 2.3 mg/dL (1.7-2.2) H 07/05/17 07:30 Total Bilirubin 1.1 mg/dL (0.2-1.3) 07/05/17 07:30 AST 30 U/L (17-59) 07/05/17 07:30 ALT 48 U/L (7-56) 07/05/17 07:30 Alkaline Phosphatase 76 U/L (38-126) 07/05/17 07:30 Troponin I < 0.01 ng/mL 07/03/17 20:45 Total Protein 7.7 g/dL (5.8-8.3) 07/05/17 07:30 Albumin 4.9 g/dL (3.0-4.8) H 07/05/17 07:30 Globulin 2.8 gm/dL 07/05/17 07:30 Albumin/Globulin Ratio 1.8 (1.1-1.8) 07/05/17 07:30 Triglycerides 141 mg/dL (35-160) 07/04/17 08:00 Cholesterol 276 mg/dL (130-200) H 07/04/17 08:00 LDL Cholesterol Direct 202 mg/dL (0-129) H 07/04/17 08:00 HDL Cholesterol 43 mg/dL (29-60) 07/04/17 08:00 Vitamin B12 440 pg/mL (239-931) 07/04/17 08:00 Folate > 20.0 ng/mL 07/05/17 08:55 TSH 3rd Generation 1.23 mIU/mL (0.46-4.68) 07/04/17 08:00 Urine Color Yellow (YELLOW) 07/03/17 23:30 Urine Appearance Clear (CLEAR) 07/03/17 23:30 Urine pH 6.0 (4.7-8.0) 07/03/17 23:30 Ur Specific [place] 1.015 (1.005-1.035) 07/03/17 23:30 Urine Protein Negative mg/dL (<30 mg/dL) 07/03/17 23:30 Urine Glucose (UA) Negative mg/dL (NEGATIVE) 07/03/17 23:30 Urine Ketones Negative mg/dL (NEGATIVE) 07/03/17 23:30 Urine Blood Negative (NEGATIVE) 07/03/17 23:30 Urine Nitrate Negative (NEGATIVE) 07/03/17 23:30 Urine Bilirubin Negative (NEGATIVE) 07/03/17 23:30 Urine Urobilinogen 0.2 E.U./dL (<1 E.U./dL) 07/03/17 23:30 Ur Leukocyte Esterase Negative Katty/uL (NEGATIVE) 07/03/17 23:30 Blood Type B POSITIVE 07/03/17 20:45 Blood Type Confirm B POSITIVE 07/03/17 23:21 Antibody Screen Negative 07/03/17 20:45 BBK History Checked No verified bt 07/03/17 20:45 - Hospital Course Hospital Course: Upon Admission: 57yo M with PMHx of HTN and HLD here for evaluation of acute left hand numbness and weakness. Patient is not a candidate for TPA as onset >12 hrs prior to arrival. Patient does report that he used to take Lipitor, but stopped about a year ago. CT head was negative. Neurology was consulted. MRI brain with evidence of multifocal acute R MCA territory stroke. Patient was started on ASA , Plavix and Lipitor. Patient treated with permissive HTN over the hospital course. Cardiology consult was obtained. Patient was placed on tele monitoring and no evidence of any arrhythmias detected throughout the hospital stay. ECHO with bubble study showed no shunt or PFO and preserved LV function. CTA Head/ Neck with no evidence of occlusion, thrombus or significant stenosis noted. Patient was cleared for discharge on Lipitor. He was also recommended to continue ASA, Plavix for at least 21 days and then ASA indefinitely. Patient is to follow up with Cardiology as out-patient for Holter monitor. Discussed findings and recommendations with the patient and family at length. Pat[place] to follow up with PMD, Neurology and Cardiology. Patient expressed understanding and all questions and concerns were addressed. Patient agrees with plan. 1. Acute multifocal R MCA territory CVA; ASA/Plavix for 21 days. ASA indefinitely. Holter monitor as out-patient. 2. Hx of HTN. Patient to follow up with PMD. Permissive HTN for acute CVA at this time 3. Hx of HLD; Continue Lipitor Upon Discharge: Patient is cleared for discharge as per Dr. Sy. 1. Follow up with your primary care physician within 3 days. 2. Follow up with Cardiology, Dr. Arevalo. Call for appointment if you have not heard from him next week. Dr. Arevalo's service to call patient to set up holter monitor as out-patient 3. Follow up with Neurology, Dr. Tyler. Call for appointment. 4. Take new medications as prescribed. 5. Return to the ER with any concerning symptoms. New Prescriptions: 1. Atorvastatin 40mg PO HS #30/0 2. Aspirin 81mg PO Daily #30/0 3. Plavix 75mg PO Daily #30/0 Discharge Exam - Head Exam Head Exam: ATRAUMATIC, NORMAL INSPECTION, NORMOCEPHALIC - Eye Exam Eye Exam: EOMI, Normal appearance - ENT Exam ENT Exam: Mucous Membranes Moist - Neck Exam Neck exam: Full Rom - Respiratory Exam Respiratory Exam: Clear to PA & Lateral, NORMAL BREATHING PATTERN. absent: Decreased Breath Sounds, Rales, Rhonchi, Wheezes, Respiratory Distress - Cardiovascular Exam Cardiovascular Exam: RRR, +S1, +S2. absent: JVD - GI/Abdominal Exam GI & Abdominal Exam: Soft. 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 Sensory intact - Psychiatric Exam Psychiatric exam: Normal Affect, Normal Mood - Skin Skin Exam: Dry, Intact, Normal Color, Warm Discharge Plan - Discharge Medications Prescriptions: Aspirin [Aspirin Chewable] 81 mg PO DAILY #30 chew Atorvastatin [Lipitor] 40 mg PO DIN #30 tab Clopidogrel [Plavix] 75 mg PO DAILY #30 tab - Follow Up Plan Condition: STABLE Disposition: HOME/ ROUTINE Instructions: Low Fat Diet (DC), Heart Healthy Diet (DC), Ischemic Stroke (DC) , Chronic Hypertension (DC) Additional Instructions: Patient is cleared for discharge as per Dr. Sy. 1. Follow up with your primary care physician within 3 days. 2. Follow up with Cardiology, Dr. Arevalo. Call for appointment if you have not heard from him next week. Dr. Arevalo's service to call patient to set up holter monitor as out-patient 3. Follow up with Neurology, Dr. Tyler. Call for appointment. 4. Take new medications as prescribed. 5. Return to the ER with any concerning symptoms. New Prescriptions: 1. Atorvastatin 40mg PO HS #30/0 2. Aspirin 81mg PO Daily #30/0 3. Plavix 75mg PO Daily #30/0 Referrals: Abran Arevalo MD [Staff Provider] - Kvng Tyler MD [Staff Provider] - Ivan Espinoza MD [Primary Care Provider] -
[2017-07-05 17:54] VITALS: BP 148/96; PULSE 82; RESP 20; TEMP 98.1
[2017-07-06 07:53] LABS: HOMOCYSTEINE 11.5 umol/L (<11.4)
== END 2017-07-05 18:50 | disposition home or self-care (01) | DRG 66 ==
LOC: ED 20:07 → ERH 07-04 01:01 → 2RSO 07-04 02:19 → OBSVTOIN 07-04 16:32
PROVIDERS: ADMIT Internal Medicine; ATTEND Internal Medicine
DX: I63.9 Cerebral infarction, unspecified (principal); I10 Essential (primary) hypertension; E78.5 Hyperlipidemia, unspecified; Z91.14 Patient's other noncompliance with medication regimen

== ENCOUNTER 2017-07-10 07:38 | Day surgery (SDC) | payer OTHER ==
[2017-07-09 09:46] VITALS: BMI 27.9
--- NOTE | 2017-07-09 19:54 | HP ---
REASON FOR ADMISSION: Implantation of loop recorder (Reveal LINQ) to rule out paroxysmal atrial fibrillation. BRIEF CLINICAL HISTORY: A 57-year-old male with past medical history significant for hypertension and hyperlipidemia, who was on anticholesterol medication, stopped taking 1 year ago and worked as a real estate, admitted on 06/25/2017 with acute CVA. The patient says that he was at work, suddenly he had started feeling numbness and then later on numbness went away and he felt weakness of the fingers. So later on after end of the work, he came to the Emergency Room around 8 to 9 p.m. At that time, he was unable to flex the fingers, but numbness went away, later on the power increased. The patient was seen by the neurologist who suggested the patient needs a loop recorder because of high risk of paroxysmal atrial fibrillation the way strokes behave in the territory. So, the patient is scheduled for elective implantation of a loop recorder. PAST MEDICAL HISTORY: Significant for history of recent CVA, history of hypertension, history of hyperlipidemia. Prior to admission the patient was not currently on any medication. PAST SURGICAL HISTORY: Significant for meniscal tear. ALLERGIES: NO KNOWN DRUG ALLERGIES. CURRENT MEDICATIONS: The patient is now taking clopidogrel Plavix 75 mg, aspirin 81 mg, and atorvastatin 40 mg daily. REVIEW OF SYSTEMS: As per HPI. PHYSICAL EXAMINATION: VITAL SIGNS: As follows: Temperature afebrile, heart rate 82, and blood pressure 130/80. HEENT: PERRLA intact. NECK: Supple. No carotid bruits or thyromegaly. CHEST: Clear to auscultation. HEART: S1 and S2 regular. ABDOMEN: Soft. EXTREMITIES: Clubbing and cyanosis negative. LABORATORY DATA: Blood workup as of 07/05/2017, WBC 6.4, hemoglobin 15.6, hematocrit 44.8, and platelet count 205. Coagulation profile as of 07/03/2017, PT 10.9, INR 1.01, and PTT 24.8. Chemistry shows sodium 142, potassium 4.0, chloride of 104, carbon dioxide 27, anion gap of 17, BUN 18, creatinine 1.0, TSH 1.29, and homocystine 11.5. Total triglyceride 141, cholesterol 276, LDL 202, and HDL 43. MRI of the brain and previous cardiac workup as follows: MRI of the brain showed a multifocal small acute infarct in the right MCA territory involving the posterior frontal cortex and precentral gyrus. The patient had echocardiography on 07/04/2017 that showed normal LV function, trace mitral regurgitation, normal TR, and RV systolic pressure of 34. IMPRESSION AND PLAN: Acute cerebrovascular accident, middle cerebral artery territory infarct, as per Neurology probably needs to rule out paroxysmal atrial fibrillation. The patient was in a Holter monitor for 24 hours and did not picker and sorter load and unload any arrhythmia, suggested at least for 30 days or longer duration so we will put in for implant of a loop recorder to rule out any cryptogenic stroke and to rule out any arrhythmia etiology. Risks, benefits, and alternatives discussed with the patient, the patient agreed to proceed further for loop recorder. Further recommendations after loop recorder. Arrangement will be made for transtelephonic and on-site followup. We will follow with you. Thank you Dr. Sy for providing me the opportunity in taking care of Reynold Parrish. Abran Arevalo MD
[2017-07-10 08:21] VITALS: RESP 18
[2017-07-10] MEDS ORDERED: Lidocaine 2% Inj (20ml) ONE (11:01)
[2017-07-10 12:26] VITALS: PULSE 69; TEMP 97.8; O2SAT 98
[2017-07-10 13:26] VITALS: BP 148/92
--- NOTE | 2017-07-11 08:03 | CARDCATH ---
PROCEDURE DATE: 07/10/2017 PROCEDURES: Implantation of loop recorder LINQ (Medronic Reveal) Code number [id number]. PERFORMING PHYSICIAN: Abran Arevalo MD SHEET METAL DUCT WORKER SUPERVISOR: Santos Arreguin, bench lay out technician is scheduling elective. INDICATIONS FOR THE PROCEDURE: Cryptogenic stroke, rule out paroxysmal atrial fibrillation. BRIEF CLINICAL HISTORY: This is a 57-year-old male with past medical history significant for hyperlipidemia, not on current medication, admitted with acute CVA in right middle cerebral artery territory infarct seen by neurologist and suggested to have a loop recorder because the patient was possibly secondary to paroxysmal atrial fibrillation, and cryptogenic stroke. The patient brought today for implantation of loop recorder. DESCRIPTION OF PROCEDURE: The patient was put in the tender labor in a straight and supine position in a stretcher and draped and prepped in a standard fashion. Fourth intercostal space was identified, 2% lidocaine injection was given with number 11 Bard-Philip BP knife, a small incision was done and a pocket was created and the loop recorder was injected and the puncture site was closed with Dermabond. The patient tolerated the procedure well. In summary, the following procedure was done, implantation of loop recorder Reveal Medronic LINQ was placed. Arrangements have been made for transtelephonic continuous recording as well as onsite for any event if the patient may feel and education was given to the patient for event recorder. Plan is to follow up in one week in office and would be followed up periodically. Thank you Dr. Espinoza for providing opportunity in taking care of patient, Reynold Parrish. Abran Arevalo MD cc: Ivan Espinoza MD
== END 2017-07-10 13:15 | disposition home or self-care (01) ==
LOC: SDSVAS 07:38
PROVIDERS: ATTEND Internal Medicine Cardiovascular Disease
DX: I48.0 Paroxysmal atrial fibrillation (principal); I34.0 Nonrheumatic mitral (valve) insufficiency; I10 Essential (primary) hypertension; E78.5 Hyperlipidemia, unspecified; Z86.73 Personal history of transient ischemic attack (TIA), and cerebral infarction without residual deficits
CPT/HCPCS: 33282; 36415; 86850; 86900; C1764; J1644

== ENCOUNTER 2019-02-22 07:22 | Day surgery (SDC) | payer OTHER ==
[2019-02-12 12:07] VITALS: BMI 28.2
[2019-02-22] MEDS ORDERED: Lidocaine PF 2% (5 ml) Inj (For Cardiac Arrhy) ONE (08:35)
[2019-02-22] MEDS ORDERED: Midazolam 2 MG/2 ML VIAL ONE (09:12)
[2019-02-22] MEDS ORDERED: Sodium Chloride 0.9% 1,000 ML IV SCH (09:45)
--- NOTE | 2019-02-22 10:38 | CPOSTOP ---
DATE: 02/22/2019 PHYSICIAN: Abran Arevalo MD FIELD CONSULTANT: Dontae Dowell radio technician. TYPE OF ANESTHESIA: Moderate conscious sedation. Total 2 mg of Versed, 100 of fentanyl given plus local anesthesia. PRE-PROCEDURE DIAGNOSIS: Cryptogenic stroke status post implantation of loop recorder. PROCEDURE PERFORMED: Removal of implanted loop recorder link. FINDING: Successful removal of loop recorder. FINAL DIAGNOSES: Cryptogenic stroke. No arrhythmia noted. Over a period of one and a half years the loop recorder was there. POST PROCEDURE CONDITION: Stable. VASCULAR ACCESS SITE: Left side of the chest. RADIATION DOSE: None. FLUORO TIME: None. CUMULATIVE DOSE: None. Abran Arevalo MD MTDD
[2019-02-22 11:20] VITALS: TEMP 97.5
[2019-02-22 11:21] VITALS: BP 127/89; PULSE 76; RESP 18; O2SAT 94
--- NOTE | 2019-02-22 17:36 | CARDCATH ---
PROCEDURE DATE: 02/22/2019 CARDIOVASCULAR COP EXAMINER PROCEDURE: Removal of loop recorder ( Linq) done in hospital laboratory technician. SCHEDULING: Elective. INSPECTORS AND REGULATORY OFFICERS: Dontae Dowell, machine tool technician instructor. TYPE OF PROCEDURE PERFORMED: Removal of implanted loop recorder, implants LINK. BRIEF CLINICAL HISTORY: This is a 58-year-old male with past medical history of hypertension, hyperlipidemia, who was in 06/2017 presented with acute Cryptogenic stroke. No arrhythmia was noted so it was suggested by Neurologist report loop recorder implantation to see any arrhythmia. The patient has been monitored multiplet times and interrogated the loop recorder, last interrogation was done on 02/01/2018 and no events noted since the implantation of loop recorder, so the patient to be brought for removal of loop recorder. PROCEDURES: The patient was brought to the hospital laboratory technician, draped in a sterile standard fashion, left side of the chest was draped and loop recorder was identified. A 2% lidocaine was given and versed and 50 mg of fentanyl given for cautious sedation. Then a small incision was made with Bard-Philip knife and blunt with Renae forceps and loop recorder was pulled and the puncture site was closed with 2-0 Vicryl. Two stitches were done and wound was closed with Dermabond. The patient tolerated the procedure well and returned to the floor with stable condition. PLAN: To observe for an hour, after that the patient will go home and follow up in [address] Arevalo. Thank you, Dr. Espinoza, for providing us the opportunity in taking care of the patient, Moustapha Flaherty. Abran Arevalo MD cc: Ivan Espinoza MD MTDArielle
--- NOTE | 2019-02-22 18:54 | HP ---
DATE OF EXAM: 02/22/2019 REASON FOR ADMISSION: Removal of loop implanted, loop recorder (LINQ). BRIEF CLINICAL HISTORY: A 58-year-old male with a past medical history significant for hypertension, hyperlipidemia, cryptogenic CVA, status post loop recorder implanted with an arrhythmia on date 07/10/2017, multiple times followup essentially negative, no evidence of arrhythmia. The patient today is scheduled for removal of loop recorder. PAST MEDICAL HISTORY: Significant for hypertension, hyperlipidemia, cryptogenic CVA with a weakness of the right side which is completely resolved. CURRENT MEDICATION: The patient is taking baby aspirin 81 mg daily, Lipitor 40 mg daily, losartan 100 mg daily. REVIEW OF SYSTEMS: As per HPI. PHYSICAL EXAMINATION: GENERAL: Height of the patient is 5 feet 6 inches. Weight of the patient is 175 pounds. Body mass index 28.2 kg/m2. VITAL SIGNS: Temperature is afebrile. Heart rate 70, blood pressure 110/78. HEENT: PERRLA. Extraocular muscles intact. NECK: Supple. No carotid bruits or thyromegaly. CHEST: Clear to auscultation. HEART: S1 and S2 regular. ABDOMEN: Soft. EXTREMITIES: Clubbing and cyanosis negative. LABORATORY DATA: Blood workup pending. IMPRESSION: A 58-year-old male with past medical history significant for hypertension, hyperlipidemia, cryptogenic cirrhosis, who admitted in 06/2017 with a right-sided weakness, completely resolved. Suggested by neurologist to remove the loop recorder implantation for cryptogenic cirrhosis, but multiple times has been interrogated, no arrhythmia noted. Last interrogation was on 01/29/2019. No event noted. No arrhythmia noted. So, the patient is scheduled today for removal of the loop recorder at 8:30. Thank you Dr. Espinoza, for providing us the opportunity in taking care of the patient, Reynold Parrish. Abran Arevalo MD cc: Ivan Espinoza MD
== END 2019-02-22 11:05 | disposition home or self-care (01) ==
LOC: CATH 07:22
PROVIDERS: ATTEND Internal Medicine Cardiovascular Disease
DX: Z45.09 Encounter for adjustment and management of other cardiac device (principal); Z86.73 Personal history of transient ischemic attack (TIA), and cerebral infarction without residual deficits; I10 Essential (primary) hypertension; E78.5 Hyperlipidemia, unspecified
CPT/HCPCS: 33286; 99152; J2250; J3010; J7030